=== PATIENT | male | born 1965 | race Caucasian/White ===

== ENCOUNTER 2017-08-12 07:34 | Emergency (ER) | payer MEDICARE, MEDICAID | END 2017-08-12 10:00 | disposition home or self-care (01) | LOC: D.ER 07:34 | DX: M25.511 Pain in right shoulder (principal) ==

== ENCOUNTER 2019-07-13 13:32 | Emergency (ER) | payer MEDICARE ==
[~2019-07-13] VITALS: Ht 180.3 cm; Wt 77.3 kg
[2019-07-13 13:35] VITALS: Ht 180.3 cm; Wt 77.3 kg
[2019-07-13 14:00] LABS: BASOPHILS 0.4 % (0-2); EOSINOPHILS 6.9 % (0-7); HEMATOCRIT 46.4 % (42.0-54.0); HEMOGLOBIN 15.2 g/dL (13.5-17.5); IMMATURE GRANULOCYTES 0.2 % (0-5); LYMPHOCYTES 28.1 % (15-50); MCH 30.8 pg (26.0-34.0); MCHC 32.8 g/dL (31.0-37.0); MCV 93.9 fL (80.0-100.0); MEAN PLATELET VOLUME 10.6 fL (7.4-10.4); MONOCYTES 8.6 % (2-11); NEUTROPHILS 55.8 % (40-80); PLATELET COUNT 214 10x3/uL (130-400); RBC 4.94 10x6/uL (4.20-6.10); RDW 13.7 % (11.5-14.5); WBC 8.2 10x3/uL (4.8-10.8)
[2019-07-13 14:11] LABS: APPEARANCE CLEAR (CLEAR); BILIRUBIN NEGATIVE (NEGATIVE); COLOR YELLOW (YELLOW); GLUCOSE NEGATIVE (NEGATIVE); KETONE NEGATIVE (NEGATIVE); NITRITE NEGATIVE (NEGATIVE); PROTEIN NEGATIVE (NEGATIVE); SPECIFIC GRAVITY 1.015 (1.005-1.020); UROBILINOGEN NORMAL (NORMAL)
[2019-07-13 14:11] LABS: CALC OSMOLALITY 291 mosm/kg (275-300); CALCIUM 8.9 mg/dL (8.5-10.1); CARBON DIOXIDE 27.4 mmol/L (21.0-32.0); CHLORIDE - SERUM 110 mmol/L (98-107); GLUCOSE 111 mg/dL (74-106); POTASSIUM - SERUM 4.5 mmol/L (3.5-5.1); SODIUM 145 mmol/L (136-145); UREA NITROGEN 17 mg/dL (7-18); eGFR NON AFRICAN AMERICAN 84 mL/min (90-120)
[2019-07-13 14:12] LABS: AMORPHOUS SEDIMENT >1+ /lpf (NONE SEEN); BACTERIA MODERATE /hpf (NEGATIVE); EPITHELIAL CELLS 0-5 /hpf (0-5); RED CELLS - URINE 0-5 /hpf (0-5); WHITE CELLS - URINE 0-5 /hpf (NEGATIVE)
[2019-07-13 14:19] LABS: ALBUMIN 3.7 g/dL (3.4-5.0); ALKALINE PHOSPHATASE 81 U/L (46-116); ALT (SGPT) 53 U/L (10-68); CREATINE KINASE 163 UL (21-232); PROTEIN - SERUM 7.5 g/dL (6.4-8.2)
[2019-07-13] MEDS ORDERED: BACLOFEN20 M1 PO (16:14)
[2019-07-13 16:31] VITALS: BP 71/36
== END 2019-07-13 16:36 | disposition home or self-care (01) ==
LOC: D.ER 13:32
PROVIDERS: Family Medicine
DX: M62.838 Other muscle spasm (principal); F17.210 Nicotine dependence, cigarettes, uncomplicated